=== PATIENT | male | born 1945 | race Caucasian/White ===

== ENCOUNTER → 2017-02-03 | Outpatient (CLI) | payer MEDICARE ==
[~2017-02-03] MED LIST: ASPI325T4 PO; DIGO125T PO; HYDR12.58 PO; IRBE300T16 PO; WARF5TAB PO
== END | disposition home or self-care (01) ==
LOC: CFH 09:14
PROVIDERS: ATTEND Internal Medicine Cardiovascular Disease
DX: I35.1 Nonrheumatic aortic (valve) insufficiency (principal); I34.0 Nonrheumatic mitral (valve) insufficiency; I48.91 Unspecified atrial fibrillation; I07.1 Rheumatic tricuspid insufficiency; I37.1 Nonrheumatic pulmonary valve insufficiency; I10 Essential (primary) hypertension; Z87.891 Personal history of nicotine dependence
CPT/HCPCS: 93306

== ENCOUNTER → 2017-06-02 | Outpatient (CLI) | payer MEDICARE ==
[~2017-06-02] MED LIST changes: +OMNIPAQUE 350 MG/ML, 100ML BOTTLE ONE
== END | disposition home or self-care (01) ==
LOC: CFH 12:37
PROVIDERS: ATTEND Internal Medicine Cardiovascular Disease
DX: I25.10 Atherosclerotic heart disease of native coronary artery without angina pectoris (principal); I77.810 Thoracic aortic ectasia; I35.1 Nonrheumatic aortic (valve) insufficiency
CPT/HCPCS: 71275; 82565; Q9967

== ENCOUNTER → 2018-05-28 | Outpatient (CLI) | payer MEDICARE ==
[~2018-05-28] MED LIST changes: +ASPI325T17 PO; -ASPI325T4 PO
== END | disposition home or self-care (01) ==
LOC: CFH 09:16
PROVIDERS: ATTEND Internal Medicine Cardiovascular Disease
DX: I70.1 Atherosclerosis of renal artery (principal); I35.1 Nonrheumatic aortic (valve) insufficiency; J43.9 Emphysema, unspecified
CPT/HCPCS: 71275; 82565; Q9967

== ENCOUNTER → 2018-08-20 | Outpatient (CLI) | payer MEDICARE ==
[~2018-08-20] MED LIST changes: -OMNIPAQUE 350 MG/ML, 100ML BOTTLE ONE
== END | disposition home or self-care (01) ==
LOC: CFH 07:54
PROVIDERS: ATTEND Internal Medicine Cardiovascular Disease
DX: I08.3 Combined rheumatic disorders of mitral, aortic and tricuspid valves (principal); I10 Essential (primary) hypertension; I48.91 Unspecified atrial fibrillation
CPT/HCPCS: 93306

== ENCOUNTER 2018-08-31 14:25 | Inpatient (IN) | payer MEDICARE ==
[~2018-08-31] VITALS: Ht 180.3 cm; Wt 93.9 kg
[2018-08-31] MEDS ORDERED: ONDANSETRON ODT 4 MG PO ONE (15:00)
[2018-08-31] MEDS ORDERED: SODIUM CHLORIDE FLUSH 10ML SYR IVF ONE (15:00)
[2018-08-31] MEDS ORDERED: MORPHINE SULFATE 4 MG/ML, 1ML IVPush PRN (15:00)
[2018-08-31 15:06] LABS: BASOPHILS # (AUTO) 0.06 x10^3/uL (0-0.1); BASOPHILS % (AUTO) 1 % (0-1); EOSINOPHILS # (AUTO) 0.33 x10^3/uL (0-0.4); EOSINOPHILS % (AUTO) 3 % (1-7); LYMPHOCYTES # (AUTO) 1.25 x10^3/uL (1-3.4); LYMPHOCYTES % (AUTO) 11 % (22-44); MD NO; MEAN CORPUSCULAR HEMOGLOBIN 29.4 pg (27.5-34.5); MEAN CORPUSCULAR HGB CONC 33.8 g/dL (33.2-36.2); MEAN CORPUSCULAR VOLUME 86.9 fL (81-97); MEAN PLATELET VOLUME 8.4 fL (7.4-10.4); MONOCYTES # (AUTO) 0.86 x10^3/uL (0.2-0.8); MONOCYTES % (AUTO) 8 % (2-9); NEUTROPHILS # (AUTO) 8.45 x10^3/uL (1.8-6.8); NEUTROPHILS % (AUTO) 77 % (42-75); PLATELET COUNT 210 x10^3/uL (130-400); RED BLOOD COUNT 4.39 x10^6/uL (4.38-5.82); RED CELL DISTRIBUTION WIDTH 14.5 % (9.4-14.8)
[2018-08-31 15:15] LABS: INTERNATIONAL NORMALIZED RATIO 3.15 (0.93-1.1); PROTHROMBIN TIME 31.7 Seconds (9.6-11.5)
[2018-08-31 15:16] LABS: ALBUMIN 3.3 g/dL (3.4-5.0); ANION GAP 8 mmol/L (5-15); CALCIUM 8.6 mg/dL (8.5-10.1); CHLORIDE 105 mmol/L (98-107); CREATININE 1.05 mg/dL (0.7-1.3)
[2018-08-31] MEDS ORDERED: MORPHINE SULFATE 4 MG/ML, 1ML ONE (15:47)
[2018-08-31] MEDS ORDERED: ONDANSETRON 2MG/ML, 2ML ONE (15:47)
[2018-08-31] MEDS ORDERED: ONDANSETRON ODT 4 MG PO PRN (18:30)
[2018-08-31] MEDS ORDERED: POLYETHYLENE GLYCOL 17 GM PACKET PO PRN (18:30)
[2018-08-31] MEDS ORDERED: BISACODYL 10 MG SUPP PR PRN (18:30)
[2018-08-31] MEDS ORDERED: ACETAMINOPHEN 325 MG TABLET PO PRN (18:30)
[2018-08-31 19:14] VITALS: BP 146/84
[2018-08-31] MEDS: OXYcodone/APAP 5/325MG TABLET PO PRN (19:28)
[2018-08-31] MEDS: SODIUM CHLORIDE FLUSH 10ML SYR IVF SCH (22:41)
[2018-09-01 01:44] VITALS: BP 119/70
[2018-09-01] MEDS: OXYcodone/APAP 5/325MG TABLET PO PRN ×4 (01:57→21:24)
[2018-09-01 05:49] LABS: ALBUMIN 3.2 g/dL (3.4-5.0); ANION GAP 8 mmol/L (5-15); CALCIUM 8.8 mg/dL (8.5-10.1); CHLORIDE 103 mmol/L (98-107)
[2018-09-01 05:53] LABS: ALANINE AMINOTRANSFERASE 24 U/L (12-78); ALKALINE PHOSPHATASE 74 U/L (45-117); BILIRUBIN,TOTAL 0.9 mg/dL (0.2-1.0); CREATININE 0.94 mg/dL (0.7-1.3); TOTAL PROTEIN 6.5 g/dL (6.4-8.2)
[2018-09-01 06:08] LABS: BASOPHILS # (AUTO) 0.06 x10^3/uL (0-0.1); BASOPHILS % (AUTO) 1 % (0-1); EOSINOPHILS # (AUTO) 0.33 x10^3/uL (0-0.4); EOSINOPHILS % (AUTO) 4 % (1-7); LYMPHOCYTES # (AUTO) 1.05 x10^3/uL (1-3.4); LYMPHOCYTES % (AUTO) 14 % (22-44); MD NO; MEAN CORPUSCULAR HEMOGLOBIN 29.3 pg (27.5-34.5); MEAN CORPUSCULAR HGB CONC 33.4 g/dL (33.2-36.2); MEAN CORPUSCULAR VOLUME 87.7 fL (81-97); MEAN PLATELET VOLUME 8.8 fL (7.4-10.4); MONOCYTES # (AUTO) 0.73 x10^3/uL (0.2-0.8); MONOCYTES % (AUTO) 10 % (2-9); NEUTROPHILS % (AUTO) 71 % (42-75); PLATELET COUNT 176 x10^3/uL (130-400); RED BLOOD COUNT 4.45 x10^6/uL (4.38-5.82); RED CELL DISTRIBUTION WIDTH 14.7 % (9.4-14.8)
[2018-09-01 07:38] VITALS: BP 114/68
[2018-09-01] MEDS: HYDROCHLOROTHIAZIDE 12.5 MG CAPSULE PO SCH (08:17)
[2018-09-01] MEDS: SENNA/DOCUSATE TABLET PO SCH (08:17)
[2018-09-01] MEDS: ASPIRIN 325 MG TABLET PO SCH (08:17)
[2018-09-01] MEDS: IRBESARTAN 300 MG TABLET PO SCH (08:18)
[2018-09-01] MEDS: SODIUM CHLORIDE FLUSH 10ML SYR IVF SCH ×2 (08:19→21:00)
[2018-09-01] MEDS ORDERED: DIGOXIN 0.125 MG TABLET PO SCH (09:00)
[2018-09-01 12:28] LABS: AMPHETAMINE SCREEN, URINE Positive (Negative); BARBITURATE SCREEN, URINE Negative (Negative); BENZODIAZEPINE SCREEN, URINE Negative (Negative); CANNABINOID SCREEN, URINE Negative (Negative); COCAINE SCREEN, URINE Negative (Negative); METHADONE SCREEN, URINE Negative (Negative); OPIATE SCREEN, URINE Positive (Negative)
[2018-09-01 14:57] VITALS: BP 94/53
[2018-09-01] MEDS: WARFARIN 5 MG TABLET PO-COUM SCH (17:25)
[2018-09-01 18:45] VITALS: BP 132/71
[2018-09-02 01:40] VITALS: BP 121/72
[2018-09-02] MEDS: OXYcodone/APAP 5/325MG TABLET PO PRN ×5 (05:24→23:56)
[2018-09-02 09:28] LABS: INTERNATIONAL NORMALIZED RATIO 2.39 (0.93-1.1); PROTHROMBIN TIME 24.2 Seconds (9.6-11.5)
[2018-09-02] MEDS: SENNA/DOCUSATE TABLET PO SCH (09:54)
[2018-09-02] MEDS: HYDROCHLOROTHIAZIDE 12.5 MG CAPSULE PO SCH (09:54)
[2018-09-02] MEDS: SODIUM CHLORIDE FLUSH 10ML SYR IVF SCH ×2 (09:55→19:59)
[2018-09-02] MEDS: IRBESARTAN 300 MG TABLET PO SCH (09:55)
[2018-09-02] MEDS: ASPIRIN 325 MG TABLET PO SCH (09:55)
[2018-09-02] MEDS ORDERED: AMLO5TAB4 PO (09:57)
[2018-09-02 10:06] VITALS: BP 135/77
[2018-09-02 13:24] VITALS: BP 93/46
[2018-09-02] MEDS ORDERED: AMLODIPINE 5 MG TABLET PO SCH ×2 (16:00→18:00)
[2018-09-02 17:33] VITALS: BP 128/66
[2018-09-02] MEDS: WARFARIN 5 MG TABLET PO-COUM SCH (17:35)
[2018-09-02] MEDS ORDERED: DIGOXIN 0.125 MG TABLET PO SCH (18:00)
[2018-09-02 20:24] VITALS: BP 125/65
[2018-09-03 02:30] VITALS: BP 120/73
[2018-09-03] MEDS: OXYcodone/APAP 5/325MG TABLET PO PRN ×3 (04:46→13:49)
[2018-09-03 05:21] LABS: BASOPHILS # (AUTO) 0.04 x10^3/uL (0-0.1); BASOPHILS % (AUTO) 1 % (0-1); EOSINOPHILS # (AUTO) 0.47 x10^3/uL (0-0.4); EOSINOPHILS % (AUTO) 6 % (1-7); LYMPHOCYTES % (AUTO) 16 % (22-44); MD NO; MEAN CORPUSCULAR HEMOGLOBIN 29.6 pg (27.5-34.5); MEAN CORPUSCULAR HGB CONC 33.9 g/dL (33.2-36.2); MEAN CORPUSCULAR VOLUME 87.2 fL (81-97); MEAN PLATELET VOLUME 8.6 fL (7.4-10.4); MONOCYTES # (AUTO) 0.91 x10^3/uL (0.2-0.8); MONOCYTES % (AUTO) 11 % (2-9); NEUTROPHILS # (AUTO) 5.37 x10^3/uL (1.8-6.8); NEUTROPHILS % (AUTO) 67 % (42-75); PLATELET COUNT 177 x10^3/uL (130-400); RED BLOOD COUNT 4.44 x10^6/uL (4.38-5.82); RED CELL DISTRIBUTION WIDTH 14.4 % (9.4-14.8)
[2018-09-03 05:25] LABS: INTERNATIONAL NORMALIZED RATIO 1.93 (0.93-1.1); PROTHROMBIN TIME 19.6 Seconds (9.6-11.5)
[2018-09-03 07:18] VITALS: BP 105/66
[2018-09-03] MEDS: SENNA/DOCUSATE TABLET PO SCH (09:00)
[2018-09-03] MEDS: ASPIRIN 325 MG TABLET PO SCH (09:01)
[2018-09-03] MEDS: IRBESARTAN 300 MG TABLET PO SCH (09:01)
[2018-09-03] MEDS: SODIUM CHLORIDE FLUSH 10ML SYR IVF SCH (09:01)
[2018-09-03] MEDS: HYDROCHLOROTHIAZIDE 12.5 MG CAPSULE PO SCH (09:01)
[2018-09-03 12:27] VITALS: BP 95/58
[2018-09-03 14:51] VITALS: BP 107/66
[2018-09-03] MEDS ORDERED: TRAM50TA2 PO (15:44)
[2018-09-03] MEDS: WARFARIN 5 MG TABLET PO-COUM SCH (17:00)
== END 2018-09-03 17:31 | disposition home health service (06) | DRG 552 ==
LOC: ED 16:43 → EDIP 17:03 → 4NOR 18:09
PROVIDERS: ADMIT Internal Medicine; ATTEND Internal Medicine
DX: S32.10XA Unspecified fracture of sacrum, initial encounter for closed fracture (principal); S32.82XA Multiple fractures of pelvis without disruption of pelvic ring, initial encounter for closed fracture; E44.1 Mild protein-calorie malnutrition; D68.69 Other thrombophilia; W01.0XXA Fall on same level from slipping, tripping and stumbling without subsequent striking against object, initial encounter; Y93.89 Activity, other specified; Y92.091 Bathroom in other non-institutional residence as the place of occurrence of the external cause; Y99.8 Other external cause status; E78.5 Hyperlipidemia, unspecified; D64.9 Anemia, unspecified; F15.10 Other stimulant abuse, uncomplicated; I48.2 Chronic atrial fibrillation; Z79.01 Long term (current) use of anticoagulants; Z87.891 Personal history of nicotine dependence; Z68.28 Body mass index [BMI] 28.0-28.9, adult
CPT/HCPCS: 36415; 72190; 72192; 80048; 80053; 80162; 80307; 82040; 85025; 85610; 85730; 93005; 99285; G0378; Q0162

== ENCOUNTER → 2018-10-22 | Outpatient (CLI) | payer MEDICARE ==
[~2018-10-22] MED LIST changes: +AMLO5TAB4 PO; -HYDR12.58 PO; +HYDROCHLOROTH12.5 MG PO; +REGADENOSON 0.4 MG/5 ML SYRINGE ONE; +TRAM50TA2 PO
== END | disposition home or self-care (01) ==
LOC: CFH 08:11
PROVIDERS: ATTEND Internal Medicine Cardiovascular Disease
DX: I35.1 Nonrheumatic aortic (valve) insufficiency (principal); I73.9 Peripheral vascular disease, unspecified; I48.91 Unspecified atrial fibrillation; R06.02 Shortness of breath
CPT/HCPCS: 78452; 93017; A9502; J2785

== ENCOUNTER 2019-06-06 08:55 | Outpatient (CLI) | payer MEDICARE ==
[~2019-06-06 08:55] MED LIST changes: -REGADENOSON 0.4 MG/5 ML SYRINGE ONE
== END 2019-06-06 23:59 | disposition home or self-care (01) ==
LOC: CFH 08:55
PROVIDERS: ATTEND Internal Medicine Cardiovascular Disease
DX: I08.3 Combined rheumatic disorders of mitral, aortic and tricuspid valves (principal); I10 Essential (primary) hypertension; E78.5 Hyperlipidemia, unspecified; Z87.891 Personal history of nicotine dependence
CPT/HCPCS: 93306

== ENCOUNTER 2019-12-10 10:01 | Outpatient (CLI) | payer MEDICARE ==
[~2019-12-10 10:01] MED LIST changes: -DIGO125T PO; +DIGO125T85 PO; -IRBE300T16 PO; +IRBE300T8 PO
== END 2019-12-10 23:59 | disposition home or self-care (01) ==
LOC: CFH 10:01
PROVIDERS: ATTEND Internal Medicine Cardiovascular Disease
DX: I08.8 Other rheumatic multiple valve diseases (principal); I11.9 Hypertensive heart disease without heart failure; I48.91 Unspecified atrial fibrillation; E78.5 Hyperlipidemia, unspecified
CPT/HCPCS: 93306

== ENCOUNTER → 2020-01-07 | Outpatient (CLI) | payer MEDICARE ==
[~2020-01-07] MED LIST changes: +OMNIPAQUE 350 MG/ML, 100ML BOTTLE ONE
== END | disposition home or self-care (01) ==
LOC: CFH 13:13
PROVIDERS: ATTEND Internal Medicine Cardiovascular Disease
DX: I25.10 Atherosclerotic heart disease of native coronary artery without angina pectoris (principal); I70.0 Atherosclerosis of aorta; I71.2 Thoracic aortic aneurysm, without rupture; J43.9 Emphysema, unspecified; M41.84 Other forms of scoliosis, thoracic region; J84.10 Pulmonary fibrosis, unspecified
CPT/HCPCS: 71275; Q9967

== ENCOUNTER → 2020-10-15 | Outpatient (CLI) | payer MEDICARE ==
[~2020-10-15] MED LIST changes: -OMNIPAQUE 350 MG/ML, 100ML BOTTLE ONE; -WARF5TAB PO; +WARF5TAB2 PO
== END | disposition home or self-care (01) ==
LOC: CVU 14:54
PROVIDERS: ATTEND Internal Medicine Cardiovascular Disease
DX: I08.8 Other rheumatic multiple valve diseases (principal); I48.91 Unspecified atrial fibrillation; E78.5 Hyperlipidemia, unspecified; I10 Essential (primary) hypertension; Z87.891 Personal history of nicotine dependence
CPT/HCPCS: 93306

== ENCOUNTER → 2020-11-12 | Outpatient (CLI) | payer MEDICARE ==
[~2020-11-12] MED LIST changes: +FLUOXETINE HCL 20 MG CAPSULE ONE; +OLANZAPINE 10 MG TABLET ONE; +OMNIPAQUE 350 MG/ML, 100ML BOTTLE ONE; +QUETIAPINE 100MG TABLET ONE
== END | disposition home or self-care (01) ==
LOC: CFH 09:00
PROVIDERS: ATTEND Internal Medicine Cardiovascular Disease
DX: I71.2 Thoracic aortic aneurysm, without rupture (principal); J43.2 Centrilobular emphysema
CPT/HCPCS: 71275; Q9967

== ENCOUNTER 2021-05-07 13:23 | Outpatient (CLI) | payer MEDICARE ==
[~2021-05-07 13:23] MED LIST changes: -FLUOXETINE HCL 20 MG CAPSULE ONE; -OLANZAPINE 10 MG TABLET ONE; -OMNIPAQUE 350 MG/ML, 100ML BOTTLE ONE; -QUETIAPINE 100MG TABLET ONE
== END 2021-05-07 23:59 | disposition home or self-care (01) ==
LOC: CFH 13:23
PROVIDERS: ATTEND Internal Medicine Cardiovascular Disease
DX: I08.8 Other rheumatic multiple valve diseases (principal)
CPT/HCPCS: 93306